=== PATIENT | female | born 1995 | race Caucasian/White ===

== ENCOUNTER → 2019-01-14 14:18 | Outpatient (CLI) | payer BC, SELFPAY ==
[2016-02-02 16:51] VITALS: BMI 25.0
== END ==
PROVIDERS: Family Provider Pediatrics; PCP Pediatrics; Visit Provider Obstetrics & Gynecology
DX: Z12.4 Encounter for screening for malignant neoplasm of cervix (principal)
CPT/HCPCS: 88175; G0145